=== PATIENT | male | born 1960 | race American Indian/Alaskan Native ===

== ENCOUNTER 2018-02-25 06:49 | Outpatient (CLI) | payer OTHER ==
[2018-02-25] MEDS ORDERED: PROVENTIL IH ONE (08:47)
--- NOTE | 2018-02-25 10:10 | XRay Report ---
LEFT KNEE RADIOGRAPHS INDICATION: Knee pain, arthritis in hands, lower back pain, asthma, diabetes. COMPARISON: None similar. FINDINGS: AP and lateral left knee radiographs suggest moderate medial and patellofemoral compartment narrowing. Diffuse degenerative spurring. Intact overall articulation. Small suprapatellar effusion. CONCLUSION: Left knee osteoarthritic changes, including suprapatellar effusion as described. Please correlate. Thank you for the opportunity to participate in this patient's care.
--- NOTE | 2018-02-25 10:14 | XRay Report ---
LUMBAR SPINE RADIOGRAPHS INDICATION: Lower back pain, knee pain, arthritis in hands, asthma, diabetes. COMPARISON: None similar. FINDINGS: AP and lateral lumbar spine radiographs suggest possible transitional lumbosacral vertebra with approximately 2-3 mm lower lumbar spondylolisthesis, moderate to severe disc narrowing and vacuum disc phenomenon. Mild degenerative spurring from L3 inferiorly also noted as also facet arthropathy. Fairly preserved vertebral body stature and upper to mid lumbar disc heights. Nonobstructive bowel gas pattern. Intact SI joints. CONCLUSION: Mid to lower lumbar degenerative changes without acute bony abnormality, as described. Please correlate. Thank you for the opportunity to participate in this patient's care.
--- NOTE | 2018-02-25 10:20 | XRay Report ---
LEFT HIP RADIOGRAPHS INDICATION: Lower back pain, knee pain, arthritis in hands, asthma, diabetes. COMPARISON: None similar at this institution. FINDINGS: An AP pelvic radiograph with a frog-leg projection of the left hip demonstrate normal femoral head contours, well located within the acetabula. Couple small calcifications about the left greater trochanter may measure up to 0.7 cm. Intact pelvic articulation, including the SI joints. Lower lumbar spine degenerative changes. Nonobstructive bowel gas pattern. CONCLUSION: No acute left hip radiographic abnormality, though calcific tendinopathy about the left greater trochanter may be correlated for clinically in an appropriate setting. Thank you for the opportunity to participate in this patient's care.
== END 2018-02-25 06:50 | disposition home or self-care (01) ==
LOC: PF 06:49
PROVIDERS: ATTEND Internal Medicine
DX: Z02.71 Encounter for disability determination (principal); J45.909 Unspecified asthma, uncomplicated; E11.9 Type 2 diabetes mellitus without complications; M25.552 Pain in left hip; M25.562 Pain in left knee; M12.88 Other specific arthropathies, not elsewhere classified, other specified site; M47.896 Other spondylosis, lumbar region
CPT/HCPCS: 72100; 94060; 94640